=== PATIENT | male | born 1965 | race African-American/Black ===

== ENCOUNTER 2019-08-11 09:20 | Emergency (ER) | payer OTHER ==
[~2019-08-11] VITALS: Ht 167.6 cm; Wt 84.8 kg
[2019-08-11] MEDS ORDERED: ASPIR 8181 MG (09:43)
[2019-08-11] MEDS ORDERED: LOSARTAN POTASS50 MG (09:43)
[2019-08-11] MEDS ORDERED: AMOX-CLAV 875-1 EACH PO (12:01)
[2019-08-11] MEDS ORDERED: TUSNEL LIQUID178 ML PO (12:01)
== END 2019-08-11 15:02 | disposition home or self-care (01) ==
LOC: ER 09:20
DX: J02.9 Acute pharyngitis, unspecified (principal); I95.89 Other hypotension; I10 Essential (primary) hypertension